=== PATIENT | female | born 1995 | race Caucasian/White ===

== ENCOUNTER → 2018-03-28 11:15 | Outpatient (CLI) | payer MEDICAID, SELFPAY ==
[2018-03-28 12:56] LABS: Absolute Lymphocyte Count 2.14 X10^3/ul (0.83-4.51); Basophil# 0.02 X10^3/uL; Basophil% 0.3 % (0-1); Eosinophil# 0.08 X10^3/uL; Hematocrit 37.7 % (37-47); Hemoglobin 12.4 g/dl (12.0-15.0); Lymphocyte # 2.14 X10^3/ul (4.0); Lymphocyte % 27.9 % (19-41); Mean Corp Hgb Conc 32.9 g/gl (32-36); Mean Corpuscular Hgb 29.9 pg (27.0-32.0); Mean Corpuscular Volume 90.8 fL (81-99); Mean Platelet Vol. 9.8 fl (6.2-12.0); Monocyte# 0.44 X10^3/uL; Monocyte% 5.7 % (0-10); Neutrophil # 4.95 X10^3/uL (2.7-7.7); Neutrophil % 64.6 % (47-70); Platelet Count 307 K/mm3 (150-450); RBC Distribution Width CV 13.6 % (11.6-14.6); Red Blood Count 4.15 M/mm3 (4.2-5.4); White Blood Count 7.7 K/mm3 (4.4-11.0)
[2018-03-28 13:01] LABS: POSITIVE COUNT NO; POSITIVE DIFFERENTIAL NO; POSITIVE MORPHOLOGY NO
[2018-03-28 13:05] LABS: Glucose Challenge Gest 1H 50g 112 mg/dL (70-140)
[2018-03-28 21:18] LABS: Chlamydia Trachomatis by PCR Negative (Negative); Neisserai gonorrhoeae by PCR Negative (Negative); Probe Check PASS; Sample Adequacy Control PASS; Specimen Processing Control PASS
[2018-03-29 03:11] LABS: Rapid Plasmin Reagin (RPR) NONREACTIVE (NONREACTIVE)
[2018-03-29 08:24] LABS: HEPATITIS B SURFACE AG Negative (Negative)
[2018-03-29 09:41] LABS: HIV - WCH Non-Reactive (Nonreactive); Rubella IgG 45.9 IU/mL
== END ==
PROVIDERS: Family Provider Family Medicine Geriatric Medicine; PCP Family Medicine Geriatric Medicine; Visit Provider Nurse Practitioner Women's Health
DX: Z34.90 Encounter for supervision of normal pregnancy, unspecified, unspecified trimester (principal)
CPT/HCPCS: 82950; 85025; 86592; 86703; 86762; 86850; 86900; 87086; 87340; 87491; 87591

== ENCOUNTER → 2018-04-01 18:25 | Outpatient (CLI) | payer MEDICAID, SELFPAY ==
--- NOTE | 2018-04-01 18:30 | US_ITS ---
STUDY: SECOND AND THIRD TRIMESTER OBSTETRICAL ULTRASOUND REASON FOR EXAM: Female, 22 years old. Routine survey. LMP: September 06, 2017. TECHNIQUE: Transabdominal PRIOR ULTRASOUND: None. FINDINGS: There is a single intrauterine fetus. The fetus is in a transverse lie with the head on the maternal right side. There is demonstrated cardiac activity with a heart rate of 133 bpm. There is a normal amniotic fluid volume. The largest amniotic fluid pocket measures 4.4 cm x 5.4 cm. The placenta is There are Grade 1 placental changes. The cervix measures 3.3 cm in length. The adnexal regions are not visualized. BIOMETRY: BPD: 7.00 cm: 28 weeks, 1 days HC: 27.61 cm: 30 weeks, 2 days AC: 24.31 cm: 28 weeks, 5 days FL: 5.28 cm: 28 weeks, 1 days CI: 74% FL/BPD: 75% FL/HC: FL/AC: 22% HC/AC: 1.14 age by current US: 28 weeks, 6 days. TRISH by current US: June 18, 2018. Estimated weight: 1242 grams, +/- 181 grams, 10 %. Age by LMP: 29 weeks, 4 days. TRISH by LMP: June 13, 2018. ANATOMY: Gender: Male Cranium: Normal lateral ventricles. Normal choroid plexus. Normal cerebellum. Normal cisterna magna. Normal face, nose and lips. Chest: Normal 4-chamber heart. Abdomen/Pelvis: Normal diaphragm. Normal stomach. Normal abdominal wall. Normal cord insertion. Normal 3 vessel cord. Normal kidneys. Normal bladder. Spine: Normal cervical spine. Normal thoracic spine. Normal lumbar spine. Normal sacrum. Extremities: Normal bilateral upper extremities. Normal bilateral lower extremities. US/OB Anatomy Scan IMPRESSION: Single live intrauterine gestation with a mean gestational age of 28 weeks and 6 days. weight is in the 10th percentile. Electronically Signed: Vincenzo Thorne MD at 10:38 EDT Tel [phone], Service support ,
== END ==
PROVIDERS: Visit Provider Nurse Practitioner Women's Health
DX: O32.2XX0 Maternal care for transverse and oblique lie, not applicable or unspecified (principal); Z3A.28 28 weeks gestation of pregnancy
CPT/HCPCS: 76805

== ENCOUNTER → 2018-05-22 17:07 | Outpatient (CLI) | payer MEDICAID, SELFPAY ==
[2018-05-22 18:17] LABS: Group B Strep DNA By PCR Negative (Negative); Internal Control PASS; Probe Check PASS; Specimen Processing Control PASS
== END ==
PROVIDERS: Visit Provider Nurse Practitioner Women's Health
DX: Z3A.36 36 weeks gestation of pregnancy (principal)
CPT/HCPCS: 87081; 87653

== ENCOUNTER 2018-06-02 11:12 | Inpatient (IN) | payer MEDICAID, SELFPAY ==
[2018-06-02 10:11] VITALS: BMI 28.0
--- NOTE | 2018-06-02 11:01 | OB.TRI.NOTE ---
- Problem List (1) False labor Status: Acute History of Present Illness Date of Service: 06/02/18 Was patient seen by the physician?: Yes Reason For Visit: ROL Date of Service: 06/02/18 Final TRIHS: 06/13/18 Gestational age: 38 Weeks and 3 Days History of Present Illness: co contractions Allergies ciprofloxacin [From Cipro] Allergy (Mild, Verified 05/29/18 10:04) Other NST - FHR Rate Baby A Baseline: 130 Variability:: Moderate Accelerations:: 15 x 15 Decelerations:: None NST Reactive:: Yes FHR Category:: Category I Uterine Activity:: no regular ctx Impression/Plan false labor no cervical change dc home
[2018-06-02] MEDS: Lactated Ringers 1,000 ML 50 ML IV ×2 (11:20→14:56)
[2018-06-02 11:38] LABS: Hematocrit 34.7 % (37-47); Hemoglobin 11.5 g/dl (12.0-15.0); Mean Corp Hgb Conc 33.1 g/gl (32-36); Mean Corpuscular Volume 87.6 fL (81-99); Mean Platelet Vol. 9.9 fl (6.2-12.0); Platelet Count 298 K/mm3 (150-450); RBC Distribution Width CV 13.3 % (11.6-14.6); RBC Distribution Width SD 41.3 fl (35.1-43.9); Red Blood Count 3.96 M/mm3 (4.2-5.4); Scan Indicated on CBC? Y/N NO; White Blood Count 10.3 K/mm3 (4.4-11.0)
[2018-06-02] MEDS: Acetaminophen 325 MG Tablet PO (15:20)
[2018-06-02] MEDS: Ondansetron 4 MG/2 ML Vial IV (15:40)
[2018-06-02] MEDS: Oxytocin 30 units/NS 500 ml 30 UNITS/500 ML IV.SOLN 334 UNITS IV (16:03)
--- NOTE | 2018-06-02 16:13 | HP.PCM_ITS ---
- Problem List (1) False labor Status: Acute (2) Active labor at term Status: Acute History Date of Admission: 06/02/18 Final TRISH: 06/13/18 Gestational age: 38 Weeks and 3 Days History of this : This is a 23 year-old, , at 38 weeks gestational age PRESENTS ial. she has had a complicated by late care but no other issues. growth has been WNL> Allergies ciprofloxacin [From Cipro] Allergy (Mild, Verified 05/29/18 10:04) Other Home Medications: Home Medications vitamin,calcium,lpspkndf-yvqh-mgclm acid tablet 1 tab PO QDAY 03/28/18 Smoking Status: Never smoker Alcohol: None Number of Fetus(es): 1 Heart Tracin-130 moderate variabiity reactive no decels cat I tracing TOCO Analysis: q2-3 History Past Pregnancies: Past Pregnancies 2 previuos term uncomplicated Labs: Mom's Problem List Problem Status Onset Code False labor Acute O47.9 Mom's Labs & Results 06/02/18 06/02/18 11:20 11:20 WBC 10.3 RBC 3.96 L Hgb 11.5 L Hct 34.7 L MCV 87.6 MCH 29.0 MCHC 33.1 RDW 13.3 RDW Differential 41.3 Plt Count 298 MPV 9.9 Blood Type A POSITIVE Antibody Screen NEGATIVE Course Did the patient receive Yes care? Labs Blood Type: A RH: POSITIVE RPR/VDRL/Syphilis Nonreactive Rubella status Immune HbSAg Negative Date Done: 03/28/18 Chlamydia Negative Gonorrhea Negative HIV/AIDS Non-Reactive Group B Strep: Negative Current Obstetrical History Gestational Diabetes No Incompetent Cervix No Infertility No IUGR No Macrosomia No Hypertension/Pre-eclampsia No Placenta Previa/Abruption No PTL/PROM No Uterine anomaly No Oligohydramnios No Polyhydramnios No Multiple gestation No Past Medical History Asthma No Diabetes No Hypertension No Heart disease No Mitral valve prolapse No Neurologic/Seizure disorder/ No Migraines Kidney disease No Liver disease No Varicosities No Clotting disorders/Hx of DVT No Thyroid Dysfunction No Other medical diseases No Psychiatric disorders No Major trauma No Abnormal PAP smear No Sleep apnea No Mammogram in the last 2 years No Social History Marital Status: Alleged father Cristian Hx Smoking No Smoking Status Never smoker How long have you used no substances (years)? What date/time did you last no use any of the above? Expected Infant Delivery Method: Spontaneous Vaginal Review of Systems Constitutional: Denies: Fever, Malaise Eyes: Denies: Blurred vision, Vision Change HEENT: Denies: Head Aches, Visual Changes Cardiovascular: Denies: Chest Pain, Palpitations Respiratory: Denies: Cough, Shortness of Breath, Wheezing Gastrointestinal: Denies: Abdominal Pain, Diarrhea, Nausea, Vomiting Genitourinary: Denies: Dysuria, Hematuria Musculoskeletal: Denies: Joint Pain, Muscle pain Skin: Denies: Lesions, Rash Neurological: Denies: Blurred vision, Focal weakness, Headaches Psychiatric: Denies: Anxiety, Depression Endocrine: Denies: Heat/ Cold Intolerance Hematologic/ Lymphatic: Denies: Easy Bruising, Easy Bleeding Physical Exam General: Alert, Cooperative, No apparent distress HEENT: Atraumatic, Normocephalic. Negative for: Thyromegaly, Lymphadenopathy Cardiovascular: Regular rate Lungs: Normal air movement Abdomen: Soft, Non Tender, Gravid Neurological: Deep Tendon Reflexes 2+/4 and Symmetrical, Neuro grossly intact. Negative for: Clonus [employer]: Normal external genitalia. Negative for: Vulvar lesions Estimated gestational size: Appropriate for gestational size Presentation: Cephalic Cervix Dilation (cm): 5 Station: -1 Effacement (%): 80 Assessment/Plan All Active Problems (Last Reviewed 05/29/18 @ 10:04 by Nereyda Khalil) False labor (Acute) Active labor at term (Acute) GBS (group B Streptococcus carrier), +RV culture, currently (Acute) Late care affecting in third trimester (Acute) Supervision of other normal (Acute) Supervision of other high-risk (Resolved) Abnormal ultrasound (Ruled-out) This is a 23 year-old, , at 38 weeks gestational age IAL arom clear fluid epi PRN exp managmenet
--- NOTE | 2018-06-02 16:14 | PCM.OB.VAG ---
- Problem List (1) False labor Status: Acute (2) Active labor at term Status: Acute Vaginal Delivery Maternal Presentation: Active Labor Amniotic Membrane Rupture Type: Artificial Amniotic Fluid Description: Clear Final TRISH: 06/13/18 Gestational age: 38 Weeks and 3 Days Date of Procedure: 06/02/18 Pre-Operative Diagnosis: ial Post-Operative Diagnosis: same Surgery/ Procedure Performed: Spontaneous Vaginal Delivery Type of Anesthesia: Epidural Description of Procedure: proceeded to complete dilation delivered uncomplicated without issue. placenta delivered immediatley following intact with 3 vessel cord. delayed cord clamping. ebl 100 cc no laceration Presentation: CECILIA Placental Delivery Description: Spontaneous Placenta Disposition: [facility] Cord Vessel Description: 3 Vessels Cord Entanglement: None Estimated Blood Loss: 100 A gender: Male Episiotomy Description: None Laceration: None Medications given after delivery: IV Pitocin Complications: None
[2018-06-02] MEDS: Oxytocin 30 units/NS 500 ml 30 UNITS/500 ML IV.SOLN 167 UNITS IV (16:33)
[2018-06-02] MEDS: 0.9% Saline Lock 10 ML Syringe IV (16:46)
--- NOTE | 2018-06-02 18:23 | NURSING ---
Received report from Sheron CARRIZALES. I will assume care of patient at this time.
--- NOTE | 2018-06-02 18:37 | NURSING ---
Patient up to bathroom with assistance. Ambulates well. No symptoms. Was able to void.
[2018-06-02 19:33] VITALS: BP 93/50; PULSE 72; RESP 16; TEMP 36.7
[2018-06-03 00:42] VITALS: BP 103/66; PULSE 67; RESP 16; TEMP 36.3
[2018-06-03] MEDS: Naproxen 250 MG Tablet PO ×2 (04:11→12:25)
[2018-06-03 04:30] VITALS: BP 95/50; PULSE 67; RESP 18; TEMP 36.6
[2018-06-03 07:53] VITALS: BP 103/64; PULSE 79; RESP 18; TEMP 36.6; O2SAT 98
--- NOTE | 2018-06-03 07:59 | PN.OBGYN_ITS ---
Patient Problems: Active and Suspected Problems (Last Reviewed 05/29/18 @ 10:04 by Nereyda Khalil ) False labor (Acute) Active labor at term (Acute) Subjective: Doing well. No CP, SOB. Plans home later today - Physical Exam General: Alert, Oriented x3 Abdomen: Soft, Non Tender, - - FF below U Vital Signs Temp Pulse Resp BP 97.8 F 67 18 95/50 L 06/03/18 04:30 06/03/18 04:30 06/03/18 04:30 06/03/18 04:30 Weight: 179 lb 3.773 oz Body Mass Index (BMI) 28.0 Intake and Output for Last 24 Hours 06/01/18 06/02/18 06/03/18 23:59 23:59 23:59 Output Total 900 / 900 Balance -900 / -900 Laboratory Tests Past 24 Hrs 06/02/18 06/02/18 11:20 11:20 WBC 10.3 RBC 3.96 L Hgb 11.5 L Hct 34.7 L MCV 87.6 MCH 29.0 MCHC 33.1 RDW 13.3 RDW Differential 41.3 Plt Count 298 MPV 9.9 Blood Type A POSITIVE Antibody Screen NEGATIVE Medical Necessity - Tobacco Use Smoking Status: Never smoker Assessment/Plan All Active Problems (Last Reviewed 05/29/18 @ 10:04 by Nereyda Khalil) False labor (Acute) Active labor at term (Acute) GBS (group B Streptococcus carrier), +RV culture, currently (Acute) Late care affecting in third trimester (Acute) Supervision of other normal (Acute) Supervision of other high-risk (Resolved) Abnormal ultrasound (Ruled-out) PPD #1:Routine care. Home today
--- NOTE | 2018-06-03 07:59 | PCM.DCVAG ---
Additional Instructions: If you experience any of the following, contact your healthcare provider. Bleeding that soaks a pad every hour for 2 hours Fever 100.4 or higher Unrelieved incision or abdominal pain Swelling, redness, discharge or bleeding from your incision or episiotomy site Your incision begins to separate Problems urinating (including inability to urinate or burning while urinating). Visual changes Severe headache Flu-like symptoms Pain or redness in one of both of your breasts Pain, warmth, tenderness or swelling in your legs, especially the calf area Frequent nausea and vomiting Symptoms of depression or anxiety If you experience any of the following, call 911 or go to the nearest Emergency Room. Chest pain Problems breathing Seizure activity Partial or complete paralysis of a body part, slurred speech, weakness or drooping of the face, or a sudden inability to walk or hold your balance Allergies/Adverse Reactions: Allergies ciprofloxacin [From Cipro] Allergy (Mild, Verified 05/29/18 10:04) Other Medications to take at Discharge vitamin,calcium,olwdfqdk-cmfg-yredl acid tablet 1 tab PO QDAY 03/28/18 Primary Care Physician: Care Physician,No Primary [Primary Care Provider] - Test Results: Test results from this visit will be discussed in further detail at your follow-up appointment, if applicable.
--- NOTE | 2018-06-03 08:00 | DCINST_ITS ---
Additional Instructions: If you experience any of the following, contact your healthcare provider. * Bleeding that soaks a pad every hour for 2 hours * Fever 100.4 or higher * Unrelieved incision or abdominal pain * Swelling, redness, discharge or bleeding from your incision or episiotomy site * Your incision begins to separate * Problems urinating (including inability to urinate or burning while urinating) . * Visual changes * Severe headache * Flu-like symptoms * Pain or redness in one of both of your breasts * Pain, warmth, tenderness or swelling in your legs, especially the calf area * Frequent nausea and vomiting * Symptoms of depression or anxiety If you experience any of the following, call 911 or go to the nearest Emergency Room. * Chest pain * Problems breathing * Seizure activity * Partial or complete paralysis of a body part, slurred speech, weakness or drooping of the face, or a sudden inability to walk or hold your balance Allergies/Adverse Reactions: Allergies ciprofloxacin [From Cipro] Allergy (Mild, Verified 05/29/18 10:04) Other Medications to take at Discharge vitamin,calcium,kvcgpaxn-kjhh-nanjh acid tablet 1 tab PO QDAY 03/28/18 Primary Care Physician: Care Physician,No Primary [Primary Care Provider] - Test Results: Test results from this visit will be discussed in further detail at your follow- up appointment, if applicable.
[2018-06-03 11:56] VITALS: BP 109/58; PULSE 59; RESP 16; TEMP 36.6; O2SAT 100
[2018-06-03 16:09] VITALS: BP 116/81; PULSE 66; RESP 16; TEMP 36.6; O2SAT 98
== END 2018-06-03 18:00 | disposition home or self-care (01) | DRG 373 ==
LOC: WP 06-03 09:05 → WPOUT 06-04 06:56
PROVIDERS: Admitting Provider Obstetrics & Gynecology; Visit Provider Obstetrics & Gynecology
DX: O99.824 Streptococcus B carrier state complicating childbirth (principal); O09.33 Supervision of pregnancy with insufficient antenatal care, third trimester; Z3A.38 38 weeks gestation of pregnancy; Z37.0 Single live birth
CPT/HCPCS: 59025; 59050; 85027; 86850; 86900; 99218; J7120; A4216; G0378; J2405

== ENCOUNTER → 2024-11-28 | Outpatient (CLI) | payer OTHER, SELFPAY ==
[2024-11-28 11:35] LABS: EXAGEN MAILED SPECIMEN
[2024-11-28 12:02] LABS: Color, Urine Yellow (Yellow); Glucose, Dipstick Normal (Normal); Ketone-Dipstick Negative (Negative); Leukocyte Esterase-Dipstick 25 /ul (Negative); Nitrite-Dipstick Negative (Negative); Occult Blood-Urine 50 /ul (Negative); Protein-Dipstick Negative (Negative); Urine Bilirubin Dipstick Negative (Negative); Urine Clarity Clear (Clear); Urine Urobilinogen Normal (Normal)
[2024-11-28 12:34] LABS: Protein, Urine (Random) 7.6 mg/dL (<11.9); Protein:Creat Ratio 81 mg/g CRE (0-200)
[2024-11-30 17:07] LABS: Dilute Prothrombin Time (dPT) 36.8 sec (0.0-47.6); Dilute Russell Viper Venom 36.9 sec (0.0-47.0); Interpretation Comment: (.); PTT-LA 30.5 sec (0.0-43.5); Thrombin Time 16.9 sec (0.0-23.0); dPT Confirm Ratio 1.12 Ratio (0.00-1.34)
== END | disposition home or self-care (01) ==
LOC: MTLAB 10:27
PROVIDERS: PCP Nurse Practitioner Family; Referring Provider Internal Medicine Rheumatology; Visit Provider Internal Medicine Rheumatology
DX: R21 Rash and other nonspecific skin eruption (principal); R76.8 Other specified abnormal immunological findings in serum